=== PATIENT | male | born 1980 | race Hispanic/Latino ===

== ENCOUNTER 2018-05-18 01:52 | Emergency (ER) | payer MEDICAID ==
[2018-05-18 01:52] VITALS: BMI 28.0
[2018-05-18 02:01] VITALS: TEMP 99.6
[2018-05-18] MEDS ORDERED: Sodium Chloride 0.9% 1,000 ML IV STA (02:16)
[2018-05-18 02:40] LABS: BASO # 0.1 K/uL (0.0-0.2); BASO % 0.6 % (0.0-2.0); EOS # 0.1 K/uL (0.0-0.7); EOS % 1.2 % (0.0-4.0); HEMOGLOBIN 11.9 g/dL (12.0-18.0); LYMPH # 1.2 K/uL (1.0-4.3); LYMPH % 13.4 % (20.0-40.0); MEAN CORPUSCULAR HEMOGLOBIN 23.9 pg (27.0-31.0); MEAN CORPUSCULAR HGB CONC 31.9 g/dL (33.0-37.0); MEAN PLATELET VOLUME 8.4 fl (7.2-11.7); MONO # 0.6 K/uL (0.0-0.8); MONO % 6.5 % (0.0-10.0); NEUT # 7.3 K/uL (1.8-7.0); NEUT % 78.3 % (50.0-75.0); RBC 4.98 Mil/uL (4.40-5.90); RED CELL DISTRIBUTION WIDTH 18.1 % (11.5-14.5); WHITE BLOOD COUNT 9.3 K/uL (4.8-10.8)
[2018-05-18 02:45] LABS: VENOUS BLOOD GAS BASE EXCESS 4.6 mmol/L (0.0-2.0); VENOUS BLOOD GAS PCO2 56 mmHg (40-60); VENOUS BLOOD GAS PO2 38 mm/Hg (30-55); VENOUS BLOOD PH 7.36 (7.32-7.43)
[2018-05-18 02:47] LABS: SQUAMOUS EPITHIAL < 1 /hpf (0-5); URINE BILIRUBIN NEGATIVE (NEGATIVE); URINE BLOOD NEGATIVE (NEGATIVE); URINE CLARITY SLIGHTY-CLOUDY (Clear); URINE COLOR YELLOW (YELLOW); URINE GLUCOSE (UA) NEG (Normal); URINE LEUKOCYTE ESTERASE NEG Leu/uL (Negative); URINE PROTEIN 30 mg/dL (NEGATIVE); URINE UROBILINOGEN 0.2-1.0 mg/dL (0.2-1.0)
[2018-05-18 02:50] LABS: ALB/GLOB RATIO 1.3 (1.0-2.1); ALBUMIN 4.1 g/dL (3.5-5.0); ALT/SGPT 34 U/L (21-72); AST/SGOT 41 U/L (17-59); BILIRUBIN,DIRECT 0.4 mg/ml (0.0-0.4); BLOOD UREA NITROGEN 8 mg/dl (9-20); CALCIUM 8.5 mg/dL (8.4-10.2); GFR AFRICAN-AMERICAN > 60; GFR NON-AFRICAN AMERICAN > 60; LIPASE 32 U/L (23-300)
--- NOTE | 2018-05-18 02:55 | ED PDOC ---
HPI: General Adult Time Seen by Provider: 05/18/18 02:04 Chief Complaint (Nursing): GI Problem History Per: Patient History/Exam Limitations: no limitations Onset/Duration Of Symptoms: Hrs Have you had recent travel within the past 21 days to any of the following countries: [place], [place], [place] or [place]?: No Current Symptoms Are (Timing): Still Present Additional Complaint(s): Hx of IDDM, Schizophrenia presenting with vomiting, dizziness, dehydration. States he has been vomiting around 10 times today non-bloody, non-bilious, normal BM's. States he feels very "dry". States he is noncompliant with his diet and recently has had high sugars. No fevers, chills. No chest pain, shortness of breath, abdominal pain. Past Medical History Reviewed: Historical Data, Nursing Documentation, Vital Signs Vital Signs: Last Vital Signs Temp 99.6 F 05/18/18 02:00 Pulse 94 H 05/18/18 04:13 Resp 18 05/18/18 04:13 BP 143/79 05/18/18 04:13 Pulse Ox 98 05/18/18 04:13 - Medical History PMH: Bipolar Disorder, Diabetes, HTN (While patient denies Hx of HTN, states he has it.) Denies: Hepatitis, HIV, Chronic Kidney Disease, Seizures, Sexually Transmitted Disease - Family History Family History: States: Unknown Family Hx - Immunization History Hx Tetanus Toxoid Vaccination: No Hx Influenza Vaccination: Yes Hx Pneumococcal Vaccination: No - Home Medications Home Medications: Ambulatory Orders Medication Instructions Recorded Zolpidem [Ambien] 10 mg PO HS 02/01/16 ARIPiprazole [Abilify] 10 mg PO HS #30 tab 03/21/18 Clindamycin [Cleocin] 300 mg PO TID #21 cap 03/21/18 Gabapentin [Neurontin] 300 mg PO TID #90 cap 03/21/18 Insulin Aspart, Recombinant 14 unit SC AC unit 03/21/18 [Novolog] Insulin Aspart, Recombinant 20 unit SC AC unit 03/21/18 [Novolog] hydrOXYzine HCl [Atarax] 50 mg PO BID PRN #60 tab 03/21/18 traZODone [Desyrel] 200 mg PO HS PRN #60 tab 03/21/18 Ondansetron ODT [Zofran ODT] 4 mg PO Q8 PRN #12 odt 05/18/18 - Allergies Allergies/Adverse Reactions: Allergies Allergy/AdvReac Type Severity Reaction Status Date / Time No Known Allergies Allergy Verified 05/18/18 02:00 Review of Systems ROS Statement: Except As Marked, All Systems Reviewed And Found Negative Gastrointestinal: Positive for: Nausea, Vomiting Genitourinary Male: Negative for: Dysuria, Frequency, Incontinence Physical Exam - Reviewed Nursing Documentation Reviewed: Yes Vital Signs Reviewed: Yes - Physical Exam Appears: Positive for: Well, Non-toxic, No Acute Distress Head Exam: Positive for: ATRAUMATIC, NORMAL INSPECTION, NORMOCEPHALIC Skin: Positive for: Normal Color, Warm, DRY Eye Exam: Positive for: EOMI, Normal appearance, PERRL ENT: Positive for: Normal ENT Inspection Neck: Positive for: Normal, Painless ROM Cardiovascular/Chest: Positive for: Tachycardia Respiratory: Positive for: CNT, Normal Breath Sounds Gastrointestinal/Abdominal: Positive for: Normal Exam, Bowel Sounds, Soft. Negative for: Tenderness, Organomegaly, Mass, Distended, Guarding, Rebound Back: Positive for: Normal Inspection Extremity: Positive for: Normal ROM Neurologic/Psych: Positive for: Alert, graduate intern II-XII, Oriented. Negative for: Motor/Sensory Deficits - Laboratory Results Result Diagrams: 05/18/18 02:30 05/18/18 02:30 - ECG O2 Sat by Pulse Oximetry: 93 Pulse Ox Interpretation: Normal Medical Decision Making Medical Decision MakinAM A/P: Hx of DM, HTN, Schizophrenia presenting with vomiting, dizziness -Patient tachycardic, likely dehydrated -Unlikely DKA given normal FS -will hydrate, give zofran, check bloodwork -ddx: gastroenteritis, enteritis, gastroparesis 530AM -Patient is feeling much better, vitals significantly improved -No longer nauseated, tolerated entire pitcher of water -Patient appearing well -Advised to control diet and to followup with PMD Disposition - Clinical Impression Clinical Impression: Dehydration, Vomiting - Patient ED Disposition Is Patient to be Admitted: No - Disposition Referrals: Franko Schulte MD [Family Provider] - Disposition: Routine/Home Disposition Time: 05:31 Condition: IMPROVED Prescriptions: Ondansetron ODT [Zofran ODT] 4 mg PO Q8 PRN #12 odt PRN Reason: Nausea/Vomiting Instructions: Dehydration, Adult (DC), Nausea and Vomiting, Adult Forms: [facility] (Romanian)
[2018-05-18 05:41] VITALS: BP 127/68; PULSE 88; RESP 16; O2SAT 99
--- NOTE | 2018-05-18 11:38 | RAD ---
Date of service: 05/18/2018 HISTORY: vomiting COMPARISON: 06/30/2014 FINDINGS: LUNGS: No active pulmonary disease. PLEURA: No significant pleural effusion identified, no pneumothorax apparent. CARDIOVASCULAR: Normal. OSSEOUS STRUCTURES: No significant abnormalities. VISUALIZED UPPER ABDOMEN: Normal. OTHER FINDINGS: None. IMPRESSION: No active disease.
== END 2018-05-18 05:42 | disposition home or self-care (01) ==
LOC: H.ER 01:52
DX: E86.0 Dehydration (principal); R11.10 Vomiting, unspecified; E11.9 Type 2 diabetes mellitus without complications; Z79.4 Long term (current) use of insulin; I12.9 Hypertensive chronic kidney disease with stage 1 through stage 4 chronic kidney disease, or unspecified chronic kidney disease; F20.9 Schizophrenia, unspecified; F31.9 Bipolar disorder, unspecified; I10 Essential (primary) hypertension
CPT/HCPCS: 71045; 80048; 80076; 81003; 82803; 83690; 85025; 96361; 96374; 99285; J2405; J7030